=== PATIENT | female | born 1935 | race Caucasian/White ===

== ENCOUNTER 2016-12-04 05:54 | Inpatient (IN) | payer MEDICARE ==
[~2016-12-04] VITALS: Ht 157.5 cm; Wt 67.4 kg
[~2016-12-04 05:54] MED LIST: ASPI325T PO; ATEN1TAB74 PO; ENAL20TA81 PO; EZET10 PO; OMEP20CA5 PO; TRIA37.512 PO; ZOCO80TA PO
[2016-12-04] MEDS ORDERED: INSULIN HUMAN REGULAR 1,000 UNITS/10 ML VIAL SQ PRN (06:45)
[2016-12-04] MEDS ORDERED: POVIDONE IODINE 5% (ANTISEPSIS KIT) 4 APPLICATIONS EACH NARE PRN (06:45)
[2016-12-04] MEDS ORDERED: CHLORHEXIDINE GLUCONATE 2 % 1 PACK (2 CLOTHS) TOPICAL PRN (06:45)
[2016-12-04] MEDS ORDERED: SODIUM CHLORID 0.9% 500 ML IV PRN (06:45)
[2016-12-04] MEDS ORDERED: LACTATED RINGER'S 1000 ML INJ 1,000 ML IV SCH (06:45)
[2016-12-04] MEDS ORDERED: METOPROLOL TARTRATE 25 MG TAB PO PRN (06:45)
[2016-12-04] MEDS ORDERED: HYDR-3516 PO (06:55)
[2016-12-04] MEDS ORDERED: CLON0.1T PO (06:55)
[2016-12-04] MEDS ORDERED: APIX2.5T PO (06:55)
[2016-12-04] MEDS ORDERED: OMEP20TA PO (06:55)
[2016-12-04] MEDS ORDERED: HYDR25TA5 PO (06:55)
[2016-12-04] MEDS ORDERED: LOSA100T PO (06:55)
[2016-12-04] MEDS ORDERED: ATOR40TA16 PO (06:55)
[2016-12-04] MEDS ORDERED: ATEN50TA PO (06:55)
[2016-12-04] MEDS ORDERED: ALLO100T PO (06:55)
[2016-12-04 07:13] VITALS: BP 165/83; PULSE 67; RESP 20; TEMP 97.7; O2SAT 99
[2016-12-04 07:17] LABS: AUTOMATED NEUTROPHIL # 5.4 TH/MM3 (1.8-7.7); BASOPHIL % 0.5 % (0.0-2.0); EOSINOPHIL # 0.1 TH/MM3 (0-0.4); HEMATOCRIT 35.8 % (35.0-46.0); HEMO FLAGS DIFF FINAL; LYMPH % 14.7 % (9.0-44.0); LYMPHOCYTE # 1.1 TH/MM3 (1.0-4.8); MEAN CORPUSCULAR HEMOGLOBIN 30.8 PG (27.0-34.0); MEAN CORPUSCULAR HGB CONC 33.8 % (32.0-36.0); MONO % 10.5 % (0.0-8.0); NEUT % 73.3 % (16.0-70.0); PLATELET COUNT 124 TH/MM3 (150-450); RED BLOOD COUNT 3.94 MIL/MM3 (4.00-5.30); RED CELL DISTRIBUTION WIDTH 15.4 % (11.6-17.2); WHITE BLOOD COUNT 7.4 TH/MM3 (4.0-11.0)
[2016-12-04] MEDS ORDERED: BACITRACIN OPHT OINT 3.5 GM TUBO ONE (08:05)
[2016-12-04] MEDS ORDERED: BUPIVACAINE/EPINEPHRINE 0.25% 50 ML VIAL ONE (08:05)
[2016-12-04] MEDS ORDERED: LIDOCAINE 1%/EPINEPHrine 1:100,000 SOLN 50 ML VIAL ONE (08:05)
[2016-12-04] MEDS ORDERED: SODIUM BICARBONATE 8.4% INJ 50 MEQ/50 ML SYR ONE (08:05)
[2016-12-04] MEDS ORDERED: BACITRACIN TOP OINT 15 GM TUBE ONE (08:06)
[2016-12-04] MEDS ORDERED: MINERAL OIL 10 ML VIAL ONE (08:06)
[2016-12-04] MEDS ORDERED: MIDAZOLAM HCL 2 MG/2 ML VIAL ONE (08:09)
[2016-12-04] MEDS ORDERED: ACETAMINOPHEN 1000 MG/100 ML VIAL IV ONE (08:09)
[2016-12-04] MEDS ORDERED: SODIUM BICARBONATE 8.4% INJ 50 ML ONE (08:09)
[2016-12-04] MEDS ORDERED: FAMOTIDINE 20 MG/2 ML VIAL ONE (08:09)
[2016-12-04] MEDS ORDERED: PROPOFOL 200 MG/20 ML AMP IV ONE (08:20)
[2016-12-04] MEDS ORDERED: ceFAZolin INJ 1,000 MG VIAL IV ONE (08:32)
--- NOTE | 2016-12-04 10:30 | EKG ---
Date Performed: 12/04/2016 Time Performed: 06:49:30 PTAGE: 81 years EKG: ELECTRONIC ATRIAL PACEMAKER LEFT BUNDLE BRANCH BLOCK ABNORMAL ECG PREVIOUS TRACING : 03/03/2004 09.13 DOCTOR: Omid Hubbard Interpretating Date/Time 12/04/2016 10:29:38
[2016-12-04] MEDS ORDERED: ACETAMINOPHEN 325 MG TAB ONE (10:38)
[2016-12-04] MEDS ORDERED: DILTIAZEM HCL 25 MG/5 ML VIAL ONE (12:22)
[2016-12-04] MEDS ORDERED: METOPROLOL TARTRATE 5 MG/5 ML VIAL ONE (13:15)
[2016-12-04] MEDS ORDERED: DILTIAZEM 125 MG/NS 100 ML IV SCH ×2 (14:00)
[2016-12-04 14:25] LABS: BICARBONATE 24.8 MEQ/L (21.0-32.0); POTASSIUM 3.3 MEQ/L (3.5-5.1)
[2016-12-04] MEDS ORDERED: ACETAMINOPHEN/HYDROcodone 325 MG/5 MG TAB PO PRN ×2 (14:30)
[2016-12-04] MEDS ORDERED: ONDANSETRON HCL 4 MG/2 ML VIAL IV PRN (14:30)
[2016-12-04] MEDS ORDERED: ACETAMINOPHEN 325 MG TAB PO PRN (14:30)
[2016-12-04] MEDS ORDERED: cloNIDine HCL 0.1 MG TAB PO PRN (14:45)
[2016-12-04] MEDS ORDERED: POTASSIUM CHLORIDE 20 MEQ CONTROLLED RELEASE TAB PO ONE (15:00)
[2016-12-04] MEDS ORDERED: SODIUM CHLOR 0.9% 1000 ML INJ 1,000 ML IV SCH (15:00)
--- NOTE | 2016-12-04 15:10 | PD.CONS ---
HPI Service [facility] Hospitalists Consult Requested By Dr. Sukhdev Lagunas Reason for Consult A. fib RVR Primary Care Physician Joe Rodriguez MD Diagnoses: History of Present Illness Mrs. Roth is a pleasant 81 y/o WF with chronic atrial fibrillation, CAD s/p CABG x 3, hx of bradycardia s/p PPM in 2013, Cardiomyopathy with EF 35-40% and HTN. 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 Lagunas on 12/04/16. Post- operatively pt was found to be in A. fib RVR with HR in the 130's. She was given of IV Lopressor and then a dose of IV Cardizem without much improvement. Pt has been started on a Cardizem gtt and is being admitted for further evaluation. Labs were ordered post-operatively and pt is noted to have multiple electrolyte abnormalities, including hypokalemia, hypomagnesemia, and hypophosphatemia. Pt states that she did take her Atenolol 50mg BID this morning. She is asymptomatic in the PACU. Denies any palpitations, chest pain, SOB, dizziness, nausea/vomiting, abd pain. 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5 Mg Tab 2.5 Mg PO BID Atenolol 50 Mg Tab 50 Mg PO BID Clonidine (Clonidine HCl) 0.1 Mg Tab 0.1 Mg PO DAILY PRN Atorvastatin (Atorvastatin Calcium) 40 Mg Tab 40 Mg PO HS Hydrocodone-Acetaminophen 5-325 mg Tab 2 Tab PO Q6H PRN Omeprazole 20 Mg Tab 20 Mg PO DAILY Allopurinol 100 Mg Tab 100 Mg PO BID Losartan (Losartan Potassium) 100 Mg Tab 100 Mg PO DAILY Allergies: Coded Allergies: No Known Allergies (Verified , 12/04/16) Family History Noncontributory Social History Denies any alcohol, tobacco or illicit drug use Physical Exam Vital Signs Vital Signs Date Time Temp Pulse Resp B/P Pulse Ox O2 Delivery O2 Flow Rate FiO2 12/04/16 13:00 128 16 126/95 97 Nasal Cannula 2 12/04/16 12:00 132 16 119/90 97 Nasal Cannula 2 12/04/16 11:31 130 16 129/97 94 Nasal Cannula 2 12/04/16 10:52 137 18 115/91 98 12/04/16 10:16 97.4 61 16 164/74 96 12/04/16 10:15 59 18 147/83 94 Room Air 12/04/16 10:00 58 20 152/76 94 Room Air 12/04/16 09:44 97.6 67 23 151/76 97 Room Air 12/04/16 07:13 97.7 67 20 165/83 99 Physical Exam GENERAL: This is a well-nourished, well-developed patient, in no apparent distress. HEENT: Atraumatic. Normocephalic. No temporal or scalp tenderness. No scleral icterus. Bandages to right ear are c/d/i. Airway patent. NECK: Trachea midline, supple, nontender. CARDIO: Irregular, tachy RESP: CTA bilaterally. No wheezes, rales, or rhonchi. ABD: +BS, soft, non-tender, nondistended. EXT: Extremities without clubbing, cyanosis, or edema. NEURO: Awake and alert. Motor and sensory grossly within normal limits. Normal speech. Laboratory Laboratory Tests Test 12/04/16 12/04/16 07:05 13:48 White Blood Count 7.4 Red Blood Count 3.94 Hemoglobin 12.1 Hematocrit 35.8 Mean Corpuscular Volume 91.0 Mean Corpuscular Hemoglobin 30.8 Mean Corpuscular Hemoglobin 33.8 Concent Red Cell Distribution Width 15.4 Platelet Count 124 Mean Platelet Volume 9.0 Neutrophils (%) (Auto) 73.3 Lymphocytes (%) (Auto) 14.7 Monocytes (%) (Auto) 10.5 Eosinophils (%) (Auto) 1.0 Basophils (%) (Auto) 0.5 Neutrophils # (Auto) 5.4 Lymphocytes # (Auto) 1.1 Monocytes # (Auto) 0.8 Eosinophils # (Auto) 0.1 Basophils # (Auto) 0.0 CBC Comment DIFF FINAL Differential Comment Sodium Level 139 Potassium Level 3.3 Chloride Level 105 Carbon Dioxide Level 24.8 Anion Gap 9 Blood Urea Nitrogen 20 Creatinine 1.21 Estimat Glomerular Filtration 42 Rate Random Glucose 128 Calcium Level 8.7 Phosphorus Level 1.6 Magnesium Level 1.0 Result Diagram: 12/04/16 0705 12/04/16 1348 Assessment and Plan Problem List: (1) Atrial fibrillation with RVR Status: Acute Plan: - Pt underwent excision of melanoma from the right ear with skin graft from the right neck on 12/04/[address] Lagunas. - Post-operatively pt developed A. fib RVR with HR in the 130's. Pt has hx of chronic A. fib on BB and Eliquis. - Pt received IV Metoprolol and IV Cardizem without improvement in HR - Pt has been started on Cardizem gtt. - Resume her Atenolol - Labs were ordered post-operatively and pt is noted to have multiple electrolyte abnormalities, including hypokalemia, hypomagnesemia, and hypophosphatemia. - Start IVF with NS with KCL and replace Mag and Phos - Recheck labs in AM - Telemetry - DVT prophylaxis with SCDs (2) Melanoma Status: Chronic Plan: - Pt s/p excision of melanoma from right ear with skin graft from the right neck on 12/04/[address] Lagunas. (3) HTN (hypertension) Status: Chronic Plan: - Resume Atenolol - Hold HCTZ and Losartan for now - Monitor (4) Cardiomyopathy Status: Chronic Plan: - Pt with EF 35-40% on last 2D Echo in 06/2016 (5) Hyperlipidemia Status: Chronic Plan: - Cont. home meds (6) CAD (coronary artery disease) Status: Chronic Plan: - s/p CABG x 3 in 1998 Assessment and Plan Patient examined. Assessment and plan formulated with Opal Torres PA-C. I agree with the above. melanoma removal. afib/rvr. on cardizem gtt. hr less 100 currently and stable bp. hypokalemia,hypomag, hypophos. replace. gentle ivf. recheck labs in AM. resume bb. wean off ccb iv..if unable then start po ccb. Opal Torres Dec 04, 2016 15:10 Americo Mercedes MD Dec 04, 2016 20:00
[2016-12-04] MEDS: MAGNESIUM SULFATE 1 GM PREMIX 100 ML IV SCH ×3 (15:28→18:27)
[2016-12-04 16:00] VITALS: BP 139/83; PULSE 98; RESP 20; TEMP 97.3; O2SAT 98
[2016-12-04] MEDS ORDERED: POTASSIUM PHOSPHATE MONOBASIC 500 MG TAB PO ONE (16:00)
[2016-12-04] MEDS ORDERED: NS + KCL 20 MEQ INJ 1,000 ML IV SCH (16:00)
[2016-12-04 20:00] VITALS: BP 152/70; PULSE 60; RESP 18; TEMP 97.7; O2SAT 97
[2016-12-04] MEDS ORDERED: APIXABAN 2.5 MG TABLET PO SCH (21:00)
[2016-12-04] MEDS ORDERED: ATORVASTATIN 40 MG TAB PO SCH (21:00)
[2016-12-04] MEDS: ATENOLOL 50 MG TAB PO SCH (21:05)
[2016-12-04] MEDS: POTASSIUM PHOSPHATE MONOBASIC 500 MG TAB PO SCH (21:06)
[2016-12-04] MEDS: ALLOPURINOL 100 MG TAB PO SCH (21:06)
[2016-12-05 00:21] VITALS: BP 119/64; PULSE 64; RESP 18; TEMP 97.9; O2SAT 91
[2016-12-05 04:00] VITALS: BP 129/71; PULSE 59; RESP 18; TEMP 97.3; O2SAT 90
[2016-12-05 07:47] LABS: BICARBONATE 25.9 MEQ/L (21.0-32.0); MAGNESIUM 1.8 MG/DL (1.5-2.5); POTASSIUM 3.9 MEQ/L (3.5-5.1)
[2016-12-05 08:00] VITALS: BP 146/93; PULSE 61; RESP 18; TEMP 97.8; O2SAT 93
[2016-12-05 08:08] VITALS: PULSE 60
[2016-12-05] MEDS: ATENOLOL 50 MG TAB PO SCH (08:28)
[2016-12-05] MEDS: ALLOPURINOL 100 MG TAB PO SCH (08:28)
[2016-12-05] MEDS: POTASSIUM PHOSPHATE MONOBASIC 500 MG TAB PO SCH (08:28)
[2016-12-05] MEDS ORDERED: PANTOPRAZOLE SOD 20 MG DELAYED RELEASE TAB PO SCH (09:00)
--- NOTE | 2016-12-05 10:18 | HHI.PR ---
Subjective Remarks eager for d/c no cp or palpitation no cough or sob Objective Vitals heart irreg lung cta abd s/nt ext no edema Vital Signs Date Time Temp Pulse Resp B/P Pulse Ox O2 Delivery O2 Flow Rate FiO2 12/05/16 08:00 97.8 61 18 146/93 93 12/05/16 04:00 97.3 59 18 129/71 90 12/05/16 00:21 97.9 64 18 119/64 91 12/04/16 20:00 60 12/04/16 20:00 97.7 60 18 152/70 97 12/04/16 16:00 97.3 98 20 139/83 98 12/04/16 15:30 104 16 116/64 96 Nasal Cannula 2 12/04/16 15:00 98 16 116/72 96 Nasal Cannula 2 12/04/16 14:30 102 16 116/76 96 Nasal Cannula 2 12/04/16 14:00 124 16 133/73 96 Nasal Cannula 2 12/04/16 13:00 128 16 126/95 97 Nasal Cannula 2 12/04/16 12:00 132 16 119/90 97 Nasal Cannula 2 12/04/16 11:31 130 16 129/97 94 Nasal Cannula 2 12/04/16 10:52 137 18 115/91 98 12/04/16 12/04/16 12/05/16 15:00 23:00 07:00 Intake Total 500 ml 500 ml 386 ml Output Total 5 ml Balance 495 ml 500 ml 386 ml Intake IV Total 500 ml 386 ml Other 500 ml Output Estimated Blood Loss 5 ml # Voids 2 # Bowel Movements 0 Result Diagram: 12/04/16 0705 12/05/16 0559 A/P Problem List: (1) Atrial fibrillation with RVR Status: Acute Plan: - Pt underwent excision of melanoma from the right ear with skin graft from the right neck on 12/04/[address] Lagunas. - Post-operatively pt developed A. fib RVR with HR in the 130's. Pt has hx of chronic A. fib on BB and Eliquis. - Pt received IV Metoprolol and IV Cardizem without improvement in HR - Pt has been started on Cardizem gtt. overnight with control...still on 5mg/hr - Resumed her Atenolol - Labs were ordered post-operatively and pt is noted to have multiple electrolyte abnormalities, including hypokalemia, hypomagnesemia, and hypophosphatemia. - electrolytes and dehydration improved on labwork will stop cardizem gtt and ambulate. if HR controlled then d/c home...if rvr returns then plan for po cardizem and keep trying for d/c. (2) Melanoma Status: Chronic Plan: - Pt s/p excision of melanoma from right ear with skin graft from the right neck on 12/04/[address] Lagunas. (3) HTN (hypertension) Status: Chronic Plan: - Resume Atenolol - Hold HCTZ and Losartan for now - Monitor (4) Cardiomyopathy Status: Chronic Plan: - Pt with EF 35-40% on last 2D Echo in 06/2016 (5) Hyperlipidemia Status: Chronic Plan: - Cont. home meds (6) CAD (coronary artery disease) Status: Chronic Plan: - s/p CABG x 3 in 1998 Americo Mercedes MD Dec 05, 2016 10:18
--- NOTE | 2016-12-05 10:53 | EKG ---
Date Performed: 12/04/2016 Time Performed: 11:20:53 PTAGE: 81 years EKG: ATRIAL FIBRILLATION WITH RAPID VENTRICULAR RESPONSE INTRAVENTRICULAR CONDUCTION DELAY ANTER OSEPTAL MYOCARDIAL INFARCTION , OF INDETERMINATE AGE Compared to previous tracing, the patient does a ppear to be in atrial fibrillation with rapid ventricular rate. ABNORMAL ECG PREVIOUS TRACING : 12/04/2016 06.49 DOCTOR: Renee Grajeda Interpretating Date/Time 12/05/2016 10:51:45
[2016-12-05 11:17] VITALS: BP 124/61; PULSE 62; RESP 19; TEMP 97.8; O2SAT 93
--- NOTE | 2016-12-05 14:04 | HHI.DCPOC ---
Discharge Care Plan Diagnosis: (1) Melanoma (2) Atrial fibrillation with RVR (3) Cardiomyopathy (4) HTN (hypertension) (5) CAD (coronary artery disease) Goals to Promote Your Health * To prevent worsening of your condition and complications * To maintain your health at the optimal level Directions to Meet Your Goals Take your medications as prescribed Follow your dietary instruction Follow activity as directed Keep your appointments as scheduled Take your immunizations and boosters as scheduled If your symptoms worsen call your PCP, if no PCP go to Urgent Care Center or Emergency Room Smoking is Dangerous to Your Health. Avoid second hand smoke Call the 24-hour hour crisis hotline for domestic abuse at Americo Mercedes MD Dec 05, 2016 14:04
--- NOTE | 2016-12-06 13:52 | MP ---
cc: DUYEN LAGUNAS M.D. DATE OF SURGERY: 12/04/2016 PREOPERATIVE DIAGNOSIS Melanoma in situ, right ear. POSTOPERATIVE DIAGNOSIS Melanoma in situ, right ear. OPERATION Excision melanoma in situ, right ear, 5 x 4 cm excision. Full-thickness skin graft from right mastoid and neck area x2. SURGEON Dr. Lagunas ANESTHESIA Local plus IV sedation. 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 The patient was explained the process of excision and reconstruction with full-thickness skin graft. She is not willing to go with any major flaps. PROCEDURE The patient was brought to the operating room, was given supine position. Anesthesia was started with IV sedation. Prep and drape was done. A timeout was called and completed. Preoperative markings were made taking a 6 mm border outside of the lesion itself. Altogether the area would be 4 cm vertical and 5 cm from anterior to posterior. The lesion is quite large. The area was injected with a mixture of lidocaine 1% with epinephrine and sodium bicarb 1:1 and tumesced. The excision was started from the posterior aspect going straight down to the perichondrium. The tissue plane between the perichondrium and the subcutaneous tissue was dissected carefully to preserve the entire cartilage including the sharp border turning it over the border anteriorly and again removing the helix and the antihelical fold for a distance of 6 mm beyond the border of the melanoma itself. Hemostasis was completed with a couple of Bovie murray. The patient had a previous surgical scar in the mastoid area from her face-lift and a portion of the scar was outlined to become the new sharp border on the helix. A 4 cm long area was marked taking about 8 mm above the scar and about 1.5 cm below the scar. This would allow good closure of this particular donor site. The graft was harvested. It was trimmed of the old scar tissue and portions of the subcutaneous tissue. The face-lift scar line was outlined and was trimmed further to allow it to fold on itself. The graft was placed on the ear. First the helix borders were stabilized and buttressing sutures were placed between the anterior and posterior part of the graft to create a sharp border and then the front of the graft was tacked in, the back of the graft was tacked in. It still needed an additional piece of skin graft in the posterior aspect. First the donor site defect on the mastoid area was closed and then the neck was angled to look for areas of folded skin. A second graft was harvested, again full-thickness, from this area and was applied to the posterior aspect of the ear. Both grafts were also joined together. The donor sites were closed with inverting 3-0 Vicryl sutures. A [id number] Prolene buttress suture was also used to bring the front and the back of the graft in contact with the cartilage securely. Xeroform and eye pad bolsters were used. The rest of the donor sites were cleaned and Steri-Stripped. The patient remained stable. Intraoperative blood loss less than 5 cc. No complications. signed, not fully reviewed MD SUNSHINE Muhammad/JOSE /9:42 AM /1:33 PM MADAY
== END 2016-12-05 15:15 | disposition home or self-care (01) | DRG 264 ==
LOC: HSDC 05:54 → HSDI 14:31 → N04B 16:04
PROVIDERS: ADMIT Plastic Surgery; ATTEND Plastic Surgery
PROC: 0HB4XZZ Excision of Neck Skin, External Approach (ICD-10-PCS; 2016-12-04)
PROC: 0HR2X73 Replacement of Right Ear Skin with Autologous Tissue Substitute, Full Thickness, External Approach (ICD-10-PCS; principal; 2016-12-04 08:11)
DX: I97.89 Other postprocedural complications and disorders of the circulatory system, not elsewhere classified (principal); I42.9 Cardiomyopathy, unspecified; E11.22 Type 2 diabetes mellitus with diabetic chronic kidney disease; D03.21 Melanoma in situ of right ear and external auricular canal; E83.42 Hypomagnesemia; E83.39 Other disorders of phosphorus metabolism; I48.2 Chronic atrial fibrillation; I08.3 Combined rheumatic disorders of mitral, aortic and tricuspid valves; E87.6 Hypokalemia; E78.5 Hyperlipidemia, unspecified; K21.9 Gastro-esophageal reflux disease without esophagitis; I12.9 Hypertensive chronic kidney disease with stage 1 through stage 4 chronic kidney disease, or unspecified chronic kidney disease; N18.3 Chronic kidney disease, stage 3 (moderate); I25.10 Atherosclerotic heart disease of native coronary artery without angina pectoris; E89.0 Postprocedural hypothyroidism; Y83.8 Other surgical procedures as the cause of abnormal reaction of the patient, or of later complication, without mention of misadventure at the time of the procedure; Z95.1 Presence of aortocoronary bypass graft
CPT/HCPCS: 80048; 83735; 84100; 85025; 88305; 93005; G0378; J0131; J0690; J2250; J3475; J3480; J7120

== ENCOUNTER 2018-01-03 07:51 | Day surgery (SDC) | payer MEDICARE ==
[2018-01-03] VITALS (9 sets, daily range): BP systolic 126–141; BP diastolic 60–88; PULSE 63–77; RESP 16–20; TEMP 97.6–98.6; O2SAT 93–98
[~2018-01-03] VITALS: Ht 157.5 cm; Wt 67.0 kg
[~2018-01-03 07:51] MED LIST changes: +ALLO100T PO; +APIX2.5T PO; -ASPI325T PO; -ATEN1TAB74 PO; +ATEN50TA PO; +ATOR40TA16 PO; +CLON0.1T PO; -ENAL20TA81 PO; -EZET10 PO; +HYDR-3516 PO; +HYDR25TA5 PO; +LOSA100T PO; -OMEP20CA5 PO; +OMEP20TA93 PO; -TRIA37.512 PO; -ZOCO80TA PO
[2018-01-03] MEDS ORDERED: POVIDONE IODINE 5% (ANTISEPSIS KIT) 4 APPLICATIONS EACH NARE PRN (09:00)
[2018-01-03] MEDS ORDERED: METOPROLOL TARTRATE 25 MG TAB PO PRN (09:00)
[2018-01-03] MEDS ORDERED: SODIUM CHLORID 0.9% 500 ML IV PRN (09:00)
[2018-01-03] MEDS ORDERED: LEVOFLOXACIN 500 MG PREMIX INJ 100 ML IV ONE (09:00)
[2018-01-03] MEDS: SODIUM CHLORID 0.9% 500 ML INJ 500 ML IV SCH (09:00)
[2018-01-03] MEDS ORDERED: CHLORHEXIDINE GLUCONATE 2 % 1 PACK (2 CLOTHS) TOPICAL PRN (09:00)
[2018-01-03] MEDS ORDERED: LACTATED RINGER'S 1000 ML IV PRN (09:00)
[2018-01-03] MEDS ORDERED: LORazepam 1 MG TAB SL SCH (09:00)
[2018-01-03] MEDS ORDERED: INSULIN HUMAN REGULAR 1,000 UNITS/10 ML VIAL SQ PRN (09:00)
[2018-01-03 09:54] LABS: AUTOMATED NEUTROPHIL # 5.1 TH/MM3 (1.8-7.7); BASOPHIL # 0.1 TH/MM3 (0-0.2); BASOPHIL % 0.8 % (0.0-2.0); EOSINOPHIL # 0.2 TH/MM3 (0-0.4); EOSINOPHIL % 2.8 % (0.0-4.0); HEMATOCRIT 36.3 % (35.0-46.0); HEMOGLOBIN 12.2 GM/DL (11.6-15.3); LYMPH % 19.1 % (9.0-44.0); LYMPHOCYTE # 1.5 TH/MM3 (1.0-4.8); MEAN CELL VOLUME 93.1 FL (80.0-100.0); MEAN CORPUSCULAR HEMOGLOBIN 31.3 PG (27.0-34.0); MEAN CORPUSCULAR HGB CONC 33.6 % (32.0-36.0); MEAN PLATELET VOLUME 9.2 FL (7.0-11.0); MONO % 10.1 % (0.0-8.0); MONOCYTE # 0.8 TH/MM3 (0-0.9); NEUT % 67.2 % (16.0-70.0); PLATELET COUNT 127 TH/MM3 (150-450); RED CELL DISTRIBUTION WIDTH 15.7 % (11.6-17.2); WHITE BLOOD COUNT 7.7 TH/MM3 (4.0-11.0)
[2018-01-03] MEDS ORDERED: MAGN400T2 PO (10:06)
[2018-01-03] MEDS ORDERED: POTA10CA PO (10:06)
[2018-01-03] MEDS ORDERED: TEMA15CA PO (10:06)
[2018-01-03] MEDS ORDERED: LEVO75TA3 PO (10:06)
[2018-01-03] MEDS ORDERED: DIGO0.12 PO (10:06)
[2018-01-03] MEDS ORDERED: FURO40TA PO (10:06)
[2018-01-03 10:10] LABS: BICARBONATE 26.4 MEQ/L (21.0-32.0); CALCIUM 9.6 MG/DL (8.5-10.1); CREATININE 1.75 MG/DL (0.50-1.00)
[2018-01-03] MEDS ORDERED: HEPARIN-NS/PF FLUSH BAG 2,000 ML IV FLUSH ONE (11:56)
[2018-01-03] MEDS ORDERED: LIDOCAINE HCL 1% PF 5 ML SYRINGE OTHER ONE (12:00)
[2018-01-03] MEDS ORDERED: PHENYLEPH/NS 1000 MCG/10 ML SYR IV ONE (12:00)
[2018-01-03] MEDS ORDERED: ROCURONIUM INJ 50 MG/5 ML SYRINGE IV PUSH ONE (12:00)
[2018-01-03] MEDS ORDERED: ePHEDrine/NS 25 MG/5 ML SYRINGE IV ONE (12:00)
[2018-01-03] MEDS ORDERED: GLYCOPYRROLATE 1 MG/5 ML SYRINGE IV PUSH ONE (12:00)
[2018-01-03] MEDS ORDERED: PROPOFOL 200 MG/20 ML AMP IV ONE (12:00)
[2018-01-03] MEDS ORDERED: ONDANSETRON HCL 4 MG/2 ML VIAL IV ONE (12:00)
[2018-01-03] MEDS ORDERED: NEOSTIGMINE 5 MG/5 ML SYRINGE IV PUSH ONE (12:00)
[2018-01-03] MEDS ORDERED: PROTAMINE SULFATE 50 MG/5 ML VIAL ONE (13:00)
[2018-01-03] MEDS ORDERED: HEPARIN-D5W 25,000 U/250 ML 250 ML ONE (13:00)
[2018-01-03] MEDS ORDERED: MIDAZOLAM HCL 2 MG/2 ML VIAL ONE (13:00)
[2018-01-03] MEDS ORDERED: SODIUM CHLOR 0.9% 250 ML INJ 250 ML ONE (13:01)
[2018-01-03] MEDS ORDERED: HEPARIN SODIUM - IV 10,000 UNITS/10 ML VIAL ONE (13:01)
[2018-01-03] MEDS ORDERED: FAMOTIDINE 20 MG/2 ML VIAL ONE (13:02)
[2018-01-03] MEDS ORDERED: BACITRACIN OINT 0.9 GM PKT TOP ONE (15:00)
[2018-01-03] MEDS ORDERED: TEMAZEPAM 15 MG CAP PO PRN (15:00)
[2018-01-03] MEDS ORDERED: METOCLOPRAMIDE HCL 10 MG/2 ML VIAL IV PUSH PRN (15:00)
[2018-01-03] MEDS ORDERED: SODIUM CHLOR 0.9% 250 ML INJ 250 ML IV PRN (15:00)
[2018-01-03] MEDS ORDERED: ATROPINE SULFATE 1 MG/ML VIAL IV PUSH PRN (15:00)
[2018-01-03] MEDS ORDERED: oxyCODONE/ACETAMINOPHEN 5 MG/325 MG TAB PO PRN ×2 (15:00)
[2018-01-03] MEDS ORDERED: LORazepam 2 MG/ML VIAL IV PUSH PRN (15:00)
[2018-01-03] MEDS ORDERED: LIDOCAINE HCL 1% 50 ML VIAL INFIL PRN (15:00)
[2018-01-03] MEDS ORDERED: ONDANSETRON HCL 4 MG/2 ML VIAL IV PUSH PRN (15:00)
--- NOTE | 2018-01-03 15:34 | EKG ---
Date Performed: 01/03/2018 Time Performed: 08:50:00 PTAGE: 82 years EKG: Atrial fibrillation with PVC(s). Incomplete LBBB Possible anteroseptal infarct - age undete rmined Inferior/lateral ST-T changes may be due to myocardial ischemia Abnormal ECG PREVIOUS TRACING : 12/04/2016 11.20 Since the prior tracing, the atrial fibrillation is under c ontrol. There has been some slight variation in the nonspecific ST-T wave changes. DOCTOR: Nettie Holland Interpretating Date/Time 01/03/2018 15:32:08
[2018-01-03] MEDS ORDERED: FUROSEMIDE 20 MG/2 ML VIAL ONE (16:07)
[2018-01-03] MEDS ORDERED: DO NOT ADM ANY ANTICOAGULANT DRUGS PRN (16:15)
[2018-01-03] MEDS: APIXABAN 2.5 MG TABLET PO SCH (20:17)
[2018-01-03] MEDS: ALLOPURINOL 100 MG TAB PO SCH (20:17)
[2018-01-03] MEDS: AMIODARONE 200 MG TAB PO SCH (20:17)
[2018-01-03] MEDS: ATENOLOL 50 MG TAB PO SCH (20:18)
[2018-01-03] MEDS ORDERED: ATORVASTATIN 40 MG TAB PO SCH (21:00)
[2018-01-04] VITALS (12 sets, daily range): BP systolic 116–138; BP diastolic 55–61; PULSE 56–77; RESP 14–18; TEMP 98–98.3; O2SAT 91–93
[2018-01-04 04:56] LABS: INTERNATIONAL NORMALIZED RATIO 1.2 RATIO; PROTHROMBIN TIME - PATIENT 11.7 SEC (9.8-11.6)
[2018-01-04] MEDS ORDERED: LEVOTHYROXINE SODIUM 75 MCG TAB PO SCH (06:00)
[2018-01-04] MEDS ORDERED: POTASSIUM CHLORIDE 10 MEQ CAP PO SCH (09:00)
[2018-01-04] MEDS ORDERED: FUROSEMIDE 40 MG TAB PO SCH (09:00)
[2018-01-04] MEDS ORDERED: LOSARTAN 50 MG TAB PO SCH (09:00)
[2018-01-04] MEDS ORDERED: PANTOPRAZOLE SOD 20 MG DELAYED RELEASE TAB PO SCH (09:00)
[2018-01-04] MEDS ORDERED: MAGNESIUM OXIDE 400 MG TAB PO SCH (09:00)
[2018-01-04] MEDS: ATENOLOL 50 MG TAB PO SCH (09:10)
[2018-01-04] MEDS: ALLOPURINOL 100 MG TAB PO SCH (09:10)
[2018-01-04] MEDS: APIXABAN 2.5 MG TABLET PO SCH (09:10)
[2018-01-04] MEDS: AMIODARONE 200 MG TAB PO SCH (09:10)
[2018-01-04] MEDS: SODIUM CHLORID 0.9% 500 ML INJ 500 ML IV SCH (09:13)
--- NOTE | 2018-01-04 11:17 | PD.CARD ---
Atrial Fibrillation Cryo Study PROCEDURE DATE: January 03, 2018 discard report Antonella Humphries MD January 04, 2018 11:17
--- NOTE | 2018-01-04 11:21 | HHI.PR ---
Subjective Remarks Feeling fine Objective Vital Signs Date Time Temp Pulse Resp B/P (MAP) Pulse Ox O2 Delivery O2 Flow Rate FiO2 01/04/18 10:00 75 01/04/18 09:00 61 01/04/18 08:00 69 01/04/18 08:00 98.3 64 16 138/61 (86) 93 01/04/18 07:00 76 01/04/18 06:03 65 01/04/18 05:09 66 01/04/18 04:59 65 01/04/18 03:30 98.0 69 18 116/55 (75) 92 01/04/18 03:30 77 01/04/18 02:00 56 01/04/18 01:40 68 01/04/18 00:00 65 01/03/18 23:30 97.6 77 19 126/65 (85) 94 01/03/18 23:00 65 01/03/18 22:00 68 01/03/18 21:00 72 01/03/18 20:00 65 01/03/18 19:40 98.1 63 20 126/60 (82) 98 01/03/18 19:00 64 01/03/18 17:15 98.6 65 16 133/63 (86) 93 01/03/18 17:00 97.5 65 12 131/69 (89) 95 Nasal Cannula 3 01/03/18 16:45 65 12 146/73 (97) 95 01/03/18 16:30 65 10 146/73 (97) 94 01/03/18 16:15 66 10 147/69 (95) 95 Nasal Cannula 4 01/03/18 16:00 67 12 148/77 (100) 94 01/03/18 15:45 71 17 144/73 (96) 96 Simple Mask 6 01/03/18 15:30 97.9 77 12 156/87 (110) 89 Nasal Cannula 5 I/O 01/03/18 01/03/18 01/03/18 01/04/18 01/04/18 01/04/18 07:00 15:00 23:00 07:00 15:00 23:00 Intake Total 1240 ml 660 ml Output Total 1100 ml 550 ml Balance 140 ml 110 ml Intake Oral 240 ml 660 ml Other 1000 ml Output Urine Total 1100 ml 550 ml # Voids 2 # Bowel Movements 0 Result Diagram: 01/03/1892401/03/18924 Imaging Alert, fully oriented Lungs: ventilated Heart: s1, S2 regular, no gallop Abdomen: soft, no mass Ext: no edema Current Medications Medications (Trade) Dose Ordered Sig/Star Route Start Time Stop Time Status Last Admin Sodium Chloride 500 ml @ 30 mls/hr [id number] IV 01/03/18 09:00 01/03/18 09:00 (Ativan) 1 mg FUR VAULT ATTENDANT SL 01/03/18 09:00 01/06/18 08:59 Lactated Ringer's 1,000 ml @ 30 mls/hr Q24H PRN IV 01/03/18 09:00 01/06/18 08:59 Sodium Chloride 500 ml @ 30 mls/hr [id number] PRN IV 01/03/18 09:00 01/06/18 08:59 (Lopressor) 25 mg FUR VAULT ATTENDANT PRN PO 01/03/18 09:00 01/06/18 08:59 (Betadine 5% Antisepsis Kit) 1 applic FUR VAULT ATTENDANT PRN EACH NARE 01/03/18 09:00 01/06/18 08:59 (Chlorhexidine 2% Cloth) 3 pack FUR VAULT ATTENDANT PRN TOPICAL 01/03/18 09:00 01/06/18 08:59 (NovoLIN R INJ) See Protocol Table ... FUR VAULT ATTENDANT PRN SQ 01/03/18 09:00 01/06/18 08:59 (Percocet 5-325 Mg) 1 tab Q4H PRN PO 01/03/18 15:00 (Percocet 5-325 Mg) 2 tab Q4H PRN PO 01/03/18 15:00 (Ativan Inj) 0.5 mg UNSCH PRN IV PUSH 01/03/18 15:00 01/04/18 14:59 (Atropine Inj) 0.5 mg UNSCH PRN IV PUSH 01/03/18 15:00 Sodium Chloride 250 ml @ 500 mls/hr ONCE PRN IV 01/03/18 15:00 01/04/18 14:59 (Reglan Inj) 5 mg Q4H PRN IV PUSH 01/03/18 15:00 (Zofran Inj) 4 mg Q4H PRN IV PUSH 01/03/18 15:00 (Xylocaine 1% Inj (50 ml)) 10 ml UNSCH PRN INFIL 01/03/18 15:00 01/04/18 14:59 (Zyloprim) 100 mg BID PO 01/03/18 21:00 01/04/18 09:10 (Eliquis) 2.5 mg BID PO 01/03/18 21:00 01/04/18 09:10 (Tenormin) 50 mg BID PO 01/03/18 21:00 01/04/18 09:10 (Lipitor) 40 mg HS PO 01/03/18 21:00 01/03/18 20:18 (Lasix) 40 mg DAILY PO 01/04/18 09:00 01/04/18 09:12 (Synthroid) 75 mcg DAILY@0600 PO 01/04/18 06:00 01/04/18 05:48 (Cozaar) 100 mg DAILY PO 01/04/18 09:00 01/04/18 09:15 (Mag-Ox) 400 mg DAILY PO 01/04/18 09:00 01/04/18 09:10 (KCl) 10 meq DAILY PO 01/04/18 09:00 01/04/18 09:10 (Restoril) 15 mg HS PRN PO 01/03/18 15:00 (Protonix) 20 mg DAILY PO 01/04/18 09:00 01/04/18 09:10 (Cordarone) 400 mg Q12HR PO 01/03/18 21:00 01/10/18 09:01 01/04/18 09:10 (Cordarone) 200 mg DAILY PO 01/11/18 09:00 ([facility] [place] [facility] ALL NURSING DEPARTME... UNSCH PRN .XX 01/03/18 16:15 01/04/18 16:14 Assessment and Plan Problem List: (1) Atrial fibrillation with RVR ICD Codes: I48.91 - Unspecified atrial fibrillation Status: Acute Plan: SP ablation. in sinus rhythm Doing well will be DH Follow up as previously scheduled Antonella Humphries MD January 04, 2018 11:21
--- NOTE | 2018-01-04 20:39 | EKG ---
Date Performed: 01/03/2018 Time Performed: 15:56:10 PTAGE: 82 years EKG: Sinus rhythm LEFT BUNDLE BRANCH BLOCK When compared to previous tracing, patient is now in sinus Rhythm with a le ft bundle branch block. Previous tracing showed atrial fibrillation. ABNORMAL ECG PREVIOUS TRACING : 01/03/2018 08.50 DOCTOR: Breanna Watson Interpretating Date/Time 01/04/2018 16:49:22
--- NOTE | 2018-01-04 20:51 | EKG ---
Date Performed: 01/04/2018 Time Performed: 04:48:30 PTAGE: 82 years EKG: Sinus rhythm Consider left atrial abnormality Possible septal infarct - age undetermined Inferior/lateral ST-T ch anges may be due to myocardial ischemia Low QRS voltages in precordial leads When compared to previou s tracing, Since previous tracing, no significant change noted Abnormal ECG PREVIOUS TRACING : 01/03/2018 15.56 DOCTOR: Breanna Watson Interpretating Date/Time 01/04/2018 16:50:04
[2018-01-11] MEDS ORDERED: AMIODARONE 200 MG TAB PO SCH (09:00)
--- NOTE | 2018-01-22 15:21 | PD.CARD ---
Atrial Fibrillation Ablation PROCEDURE DATE: January 03, 2018 PROCEDURES PERFORMED: 1. Electrophysiology study on Isuprel infusion 2. CS cannulation 3. 3-D mapping 4. Transseptal approach 5. Right and left heart catheterization 6. Intracardiac echo 7. Radiofrequency ablation of atrial fibrillation 8. Pulmonary vein isolation 9. Posterior wall ablation 10. Mitral valve isolation 11. Mitral line creation 12. Left atrial tachycardia ablation 13. Roof line creation 14. Floor line creation 15. Anterior wall ablation 16. Left atrial appendage isolation INDICATIONS FOR THE PROCEDURE Ms. Roth is a 82-year-old female with atrial fibrillation, symptomatic, on anticoagulation referred for electrophysiology study and ablation. The risks, the nature and the benefits of the procedure were clearly stated to her. The risks include pneumothorax, cardiac perforation, stroke, need for open heart surgery and even . The patient understood and agreed to proceed. DESCRIPTION OF THE PROCEDURE IN DETAIL As written informed consent was obtained prior to esophageal echocardiogram, the patient was kept on the table where she was prepped and draped in the usual sterile fashion. Conscious sedation was initiated and maintained throughout the procedure by the anesthesiologist. Once sedation was verified, the right and left inguinal areas were anesthetized with 2% Xylocaine. Using modified Seldinger technique, the left femoral vein was cannulated on three occasions, three guidewires were advanced. Over the wire a 6, 7 and a 10-Irish Hemaquet were advanced. Then the left femoral artery was cannulated on one occasion, one guidewire was advanced. Over the wire a 4-Irish Hemaquet was advanced. Then the right femoral vein was cannulated on one occasion, one guidewire was advanced. Over the wire a 8-Irish Hemaquet was advanced. Then under fluoroscopic guidance through the 6 and 7-Irish Hemaquet, two 5-Irish Jennifer curved quadripolar electrophysiology catheters were advanced and placed around the His as well as coronary sinus. Basic interval was measured. The patient was in atrial fibrillation. Through the 10-Irish Hemaquet, a [employer] Nation[employer] AcuNav intracardiac echo catheter was advanced and placed at the right atrium. Multiple view was obtained. There was no pericardial effusion, pulmonary vein was seen, atrial septal was visualized. Then the 8-Irish Hemaquet in the right femoral vein was exchanged for Agilis transseptal sheath that was placed all the way to the superior vena cava. Through the sheath a Jerardo needle was advanced, then the sheath, the dilator and the needle were progressed until foci engaged. Once engaged, the needle was advanced. RF was delivered for 2 seconds. I was able to cross into the left atrium. Once the needle crossed, the dilator was advanced. Once the dilator crossed, the sheath was advanced. Once the sheath crossed, the dilator and the needle were removed. At this point I did flood the system and fluid movement was seen in the left atrium the indicates the sheath is in good position. The patient already received 10,000 units of heparin. The goal is to keep an ACT around 350 during ablation. Then through the sheath a [employer] 20 pulse circumferential catheter was advanced. Using silkfred endocardial solution mapping system, a two-dimensional configuration of the left atrium was obtained. Points were taken at the left superior and inferior veins, right superior and inferior veins, mitral valve, and appendages. Then through the sheath a [employer] TactiCath 65cm 3.5mm irrigated tipped mapping and radiofrequency ablation catheter was advanced. Esophageal probe was placed temperature monitoring during ablation. When it increased to 0.5 degrees Celsius above baseline, I moved to a different area of the atrium. First I did isolate the left superior and inferior vein. Posterior was ablated. Then a roof line was created, a floor line was created, a mitral line was isolated, then the mitral valve was isolated. At that point the patient was in left atrial tachycardia. I did create a line from the floor to the roof area, passing by the left atrial appendage. Then the right superior and inferior veins were isolated. The left atrial appendage was isolated. While ablating anterior to the appendage, tachycardia cycle length prolonged the converted into sinus rhythm. At that point I did advance the circumferential catheter again into the vein. There was no signal into the vein, pacing from the vein showed no conduction to the atrium. Isuprel infusion was initiated at 20 mcg for over 10 minutes. No tachyarrhythmia was induced, post Isuprel no tachyarrhythmia was induced. At that point the procedure was complete. All catheters were removed, atrial septal sheath was exchanged for 9-Irish Hemaquet, intracardiac echo showed no pericardial effusion. There is still good flow in the pulmonary vein. The patient is going to be transferred to the recovery room. No incident report. The patient tolerated the procedure. Blood loss was minimal. FINDINGS 1. Electrocardiogram: At baseline the patient was in atrial fibrillation, post procedure the patient was in sinus rhythm. 2. Basic interval: Base cycle length was around 610ms. Post ablation she was around 1160 milliseconds. AH at 80 and HV at 48 milliseconds. 3. Tachyarrhythmia: Atrial fibrillation was mapped and ablated. Atrial tachycardia was ablated. The ablation was successful. CONCLUSION Successful electrophysiology study, mapping, radiofrequency ablation of atrial fibrillation, left atrial tachycardia, pulmonary vein isolation, posterior ablation, mitral valve isolation, mitral line creation, roof line creation, floor line creation, left atrial tachycardia ablation. COMMENTS AND RECOMMENDATIONS The patient is going to be transferred to the telemetry unit. Will be observed and when stable can be discharged home. Antonella Humphries MD January 22, 2018 15:21
== END 2018-01-04 12:27 | disposition home or self-care (01) ==
LOC: HDOC 07:51 → HDIC 07:51 → HCPC 18:13 → HDOC 01-04 12:27
PROVIDERS: ATTEND Internal Medicine Interventional Cardiology
DX: I48.91 Unspecified atrial fibrillation (principal); I25.10 Atherosclerotic heart disease of native coronary artery without angina pectoris; R00.1 Bradycardia, unspecified; E11.9 Type 2 diabetes mellitus without complications; I10 Essential (primary) hypertension; K21.9 Gastro-esophageal reflux disease without esophagitis; M19.90 Unspecified osteoarthritis, unspecified site; Z01.810 Encounter for preprocedural cardiovascular examination; Z01.818 Encounter for other preprocedural examination; Z95.1 Presence of aortocoronary bypass graft
CPT/HCPCS: 00537; 80048; 85002; 85025; 85610; 85730; 86850; 86900; 86901; 93005; 93312; 93320; 93325; 93613; 93623; 93656; 93662; C1730; C1731; C1732; C1759; C1760; C1766; C2630; G0269; J1644; J1940; J1956; J2250; J2370; J2405; J2710; J2720; J3010; J7040; J7050